=== PATIENT | female | born 1940 ===

== ENCOUNTER 2018-03-07 17:37 | Inpatient (IN) | payer MEDICARE ==
[2018-03-07 18:19] LABS: Bilirubin Negative (Negative); Blood, Urine Large (Negative); Clarity CLEAR (Clear); Glucose, Urine (Dipstick) Negative (Negative); Leukocyte Negative (Negative); Nitrite Negative (Negative); Protein, Urine (Dipstick) 100 mg/dL (Neg-Trace); Specific Gravity, Urine 1.028 (1.002-1.036); Urobilinogen 0.2 mg/dL (0.2-1.0)
[2018-03-07 18:23] LABS: Bacteria/HPF None Seen HPF (None Seen); Pathc Cast-AUWi Flag 0.72 (0-2.49); WBC/HPF 0-3 HPF (0-3)
[2018-03-07 18:34] LABS: #Lymphocytes 0.9 thou/uL (1.20-3.40); #Monocytes 0.6 thou/uL (0.11-0.59); #Neutrophils 13.4 thou/uL (1.40-6.50); %Eosinophils 0.3 % (0.0-10.0); %Lymphocytes 6.2 % (21.0-51.0); %Monocytes 4.1 % (0.0-10.0); %Neutrophils 89.4 % (42.0-75.0); Hemoglobin 15.4 g/dL (12.0-16.0); Mean Corpuscular HGB CONC 33.9 g/dL (32.0-36.0); Mean Corpuscular Hemoglobin 31.7 pg (27.0-31.0); Mean Corpuscular Volume 93.7 fL (78.0-98.0); Mean Platelet Volume 7.9 fL (7.4-10.4); Platelet Count 291 thou/uL (130-400); RBC Distribution Width 11.8 % (11.5-14.5); Red Blood Cell (RBC) Count 4.87 mill/uL (4.20-5.40)
[2018-03-07 18:38] LABS: Crystals/HPF 1+ STARCH HPF (Negative); Hyaline Casts/LPF 0-3 HYALINE CAST LPF (0-3 Hyaline); RBC/HPF 0-3 HPF (0-3); Renal Epithelial None Seen HPF (0-3); Transitional Epithelial NONE SEEN HPF (0-3)
--- NOTE | 2018-03-07 18:54 | RAD ---
PORTABLE CHEST 03/07/18 PROVIDED CLINICAL HISTORY: Altered mental status. FINDINGS: The cardiac and mediastinal silhouette is within normal limits. No focal consolidation, pleural fluid or pneumothorax apparent. IMPRESSION: No evidence for an acute cardiopulmonary process. POS: AMY
[2018-03-07 18:55] LABS: ALT (SGPT) 17 U/L (8-55); AST (SGOT) 35 U/L (5-34); Albumin 4.3 g/dL (3.4-4.8); Alkaline Phosphatase 72 U/L (40-150); Anion Gap 17 mmol/L (10-20); BUN (Urea Nitrogen) 11 mg/dL (9.8-20.1); Bilirubin, Total 0.5 mg/dL (0.2-1.2); CK (CPK) 667 U/L (29-168); Calc. Creatinine Clearance 0 mL/min (70-130); Calcium 9.7 mg/dL (7.8-10.44); Carbon Dioxide 20 mmol/L (23-31); Chloride 103 mmol/L (98-107); Estimated GFR-MDRD 63; Globulin 3.1 g/dL (2.4-3.5); Glucose 141 mg/dL (83-110); Potassium 4.2 mmol/L (3.5-5.1); Protein, Total 7.4 g/dL (6.0-8.3); Sodium 136 mmol/L (136-145)
[2018-03-07 19:23] LABS: CKMB 7.3 ng/mL (0-6.6)
[2018-03-07] MEDS ORDERED: Aspirin 300 MG Suppository ONE (19:28)
--- NOTE | 2018-03-07 19:42 | CT ---
CT BRAIN 03/07/18 PROVIDED CLINICAL HISTORY: Altered mental status. FINDINGS: Comparison is made with the examination dated 01/16/17. There is diminished attenuation and loss of varela-white differentiation involving the high right front al gyri near the vertex, compatible with recent infarction. There is no evidence for intracranial hem orrhage. Prominent chronic microvascular ischemic changes are seen. The ventricular system is nondila ki. There is no evidence for mass effect or midline shift. The extracranial soft tissues and osseous structures demonstrate no acute abnormality. IMPRESSION: Findings compatible with acute infarction in the distribution of the right anterior cerebral artery. No evidence for intracranial hemorrhage. POS: AMY
[2018-03-07] MEDS ORDERED: Ondansetron PF 4 MG/2 ML Vial IVP PRN (20:20)
[2018-03-07] MEDS ORDERED: Acetaminophen 325 MG TAB PO PRN (20:20)
--- NOTE | 2018-03-07 23:07 | HP ---
PRIMARY CARE PHYSICIAN: Abhi Morgan MD CODE STATUS: DNR. I have discussed the code status with power of energy attorney in advance directive, who is patient's daughter. TIME OF EVALUATION: 7:30 p.m. CHIEF COMPLAINT: The patient was found on the floor. HISTORY OF PRESENT ILLNESS: This is a 77-year-old female patient. The patient has a past medical history of dementia, looks like patient also had a history of hypertension, came to the hospital after the patient being found on the floor. EMS was called, the patient was found to have left-sided weakness, with deviation of the gaze in the head to the right side, last time the patient was seen normal was 24 hours ago. No clear triggers. No elevation factors of patient symptoms and symptoms are severe. It looks like the pain going on for 12 to 24 hours. REVIEW OF SYSTEMS: Unable to obtain any information. The patient does not answer any questions. PAST MEDICAL HISTORY: Unable to fully confirm, but one of the friends who is in the bedside said the patient has a history of hypertension. PAST SURGICAL HISTORY: Unable to obtain. PSYCHIATRIC HISTORY: The patient has some dementia, but was unable to do most of her activities of daily living before the stroke. ALLERGIES: NO KNOWN DRUG ALLERGIES. REPORTED MEDICATIONS: 1. Memantine. 2. Alprazolam. 3. Atorvastatin. 4. Donepezil. 5. Fluoxetine. 6. Meclizine. 7. Metoprolol. 8. Effexor. PHYSICAL EXAMINATION: VITAL SIGNS: On presentation, blood pressure 169/82 with heart rate 70, respiratory rate was 18, oxygen saturation was 95 on room air, temperature was 98.6. GENERAL APPEARANCE: The patient has right side deviation of the gaze of the head, disoriented, confused, unable to give any answers. HEENT: Eyes, gaze deviated to the right. Normal conjunctivae. Moist oral mucosa. Anicteric. No JVD. RESPIRATORY: Bilateral air entry. No rales. No wheezing. Symmetric expansion. CARDIOVASCULAR: Normal rate. Regular rhythm. No murmurs. No gallops. No edema. ABDOMEN: Soft. Normal bowel sounds. MUSCULOSKELETAL: Baseline range of motion and strength except for deviation and left sided weakness from the stroke. No tenderness. SKIN: Warm and intact. No pallor. No rash. No redness. EXTREMITIES: Peripheral pulses are present. Capillary refill seems to be intact. NEUROLOGIC: The patient has left sided weakness with deviation of the gaze in the head to the right side, unable to speak, aphasic, unable to fully explore. PSYCHIATRIC: Unable to explore. DIAGNOSTIC DATA: EKG was reviewed. The patient has sinus rhythm with marked sinus arrhythmia. No specific ST and T-wave abnormalities, ventricular rate 71 with QRS 78, QT corrected 445. EKG has been reviewed by myself. Chest x-ray was reviewed, the patient has no evidence of any acute cardiopulmonary process. The brain CT was reviewed, the patient had findings compatible with acute infarction in the distribution of right anterior cerebral artery. No evidence for intracranial hemorrhage. LABORATORY DATA: Labs were reviewed. The patient had white count of 15, RBC 4.8, hemoglobin 15.4, MCV 93.7, platelet count 291. Sodium 136, potassium 4.2, chloride 103, carbon dioxide 20, anion gap 17, BUN 11, creatinine 0.87, GFR 63, glucose 141, calcium 9.7, total bilirubin 0.5, AST 35, ALT 17, alk phos 72, creatine kinase , troponin 0.032. CK MB 7.3. Urine was done and was negative for any urinary infection. ASSESSMENT AND PLAN: The patient will be placed in the hospital with the following medical problems: 1. Acute ischemic stroke as seen on the CT angio in the territory of the right anterior cerebral artery, that likely is the etiology for the left side weakness. We will do stroke protocol, we will consult neurology. We will monitor patient for any complications. Keep n.p.o. The patient will need swallow evaluation due to risk of aspiration, permissive hypertension. 2. Uncontrolled hypertension. We will allow permissive hypertension due to acute ischemic stroke. 3. Leukocytosis. White count 15, likely to infection. We will continue to monitor the white count. No evidence of sepsis at this point. No further treatment. 4. Hyperglycemia. Glucose of 141, no reported diabetes as of now from family members, likely due to acute stress. We will monitor, no need for acute intervention. 5. Mildly elevated CK this is likely secondary to being lying on the floor. We will monitor. We will hydrate with correction. No further treatment at this point. 6. Mildly elevated troponin with 0.032. We will treat. We will trend troponins. This is likely non-STEMI type 2 secondary to stroke. 7. Deep venous thrombosis prophylaxis. RISK ASSESSMENT: The patient is high risk due to acute stroke. Job ID: [id number]
[2018-03-07] MEDS ORDERED: Sodium Chloride 0.9% 1,000 ML IV SCH (23:45)
[2018-03-08 01:16] LABS: Troponin I 0.033 ng/mL (< 0.028)
[2018-03-08 03:24] VITALS: BMI 18.5
[2018-03-08 05:34] LABS: #Eosinphils 0.1 thou/uL (0.0-0.7); #Monocytes 1.3 thou/uL (0.11-0.59); #Neutrophils 11.4 thou/uL (1.40-6.50); %Basophils 0.2 % (0.0-1.0); %Eosinophils 0.5 % (0.0-10.0); %Lymphocytes 13.7 % (21.0-51.0); %Monocytes 8.8 % (0.0-10.0); %Neutrophils 76.8 % (42.0-75.0); Hemoglobin 13.9 g/dL (12.0-16.0); Mean Corpuscular HGB CONC 33.4 g/dL (32.0-36.0); Mean Corpuscular Hemoglobin 30.4 pg (27.0-31.0); Mean Corpuscular Volume 90.9 fL (78.0-98.0); Mean Platelet Volume 8.1 fL (7.4-10.4); Platelet Count 287 thou/uL (130-400); RBC Distribution Width 11.8 % (11.5-14.5); Red Blood Cell (RBC) Count 4.58 mill/uL (4.20-5.40); White Blood Cell (WBC) Count 14.8 thou/uL (4.8-10.8)
[2018-03-08 05:52] LABS: Anion Gap 16 mmol/L (10-20); BUN (Urea Nitrogen) 18 mg/dL (9.8-20.1); Calc. Creatinine Clearance 40 mL/min (70-130); Calcium 9.6 mg/dL (7.8-10.44); Carbon Dioxide 22 mmol/L (23-31); Cardiac Risk 3.2 (Less than 4.5); Chloride 104 mmol/L (98-107); Cholesterol 194 mg/dl (< 200 Desired); Estimated GFR-MDRD 56; Glucose 106 mg/dL (83-110); HDL Cholesterol 61 mg/dL (>60 Neg Risk); LDL Cholesterol, Calculated 109 mg/dL; Potassium 3.9 mmol/L (3.5-5.1); Sodium 138 mmol/L (136-145); Triglycerides 122 mg/dL (Less than 150)
[2018-03-08] MEDS: Enoxaparin Sodium 40 MG/0.4 ML SYRINGE SC SCH (08:44)
[2018-03-08] MEDS: Aspirin 300 MG Suppository PR SCH (08:45)
--- NOTE | 2018-03-08 08:48 | ULT ---
CAROTID DOPPLER: Date: 03/08/18 PROVIDED CLINICAL HISTORY: CVA. FINDINGS: [place]ro scale and color Doppler sonography with spectral analysis was performed of the extracranial stone tid system bilaterally. Atherosclerotic plaque is seen in the region of both carotid bulbs. There is no evidence for a hemodynamically significant internal carotid artery stenosis by peak systolic veloc ity or ratio criteria. Antegrade flow is seen in the vertebral arteries. IMPRESSION: No sonographic evidence for hemodynamically significant internal carotid artery stenosis. POS: JAZMIN
[2018-03-08] MEDS ORDERED: Prevnar 13-Val Conj/PF 0.5 ML SYRINGE IM ONE (09:00)
--- NOTE | 2018-03-08 11:51 | MRI ---
MRI BRAIN: Date: 03/08/18 PROVIDED CLINICAL HISTORY: Altered mental status. FINDINGS: Comparison made with the CT examination performed 03/07/18. The ventricular system is normal in size and morphology. There is restricted diffusion in the distrib ution of the right anterior cerebral artery, compatible with recent infarction. There is no evidence for intracranial hemorrhage. No additional restricted diffusion is evident. Chronic microvascular isc hemic changes are seen involving the cerebral white matter. Appropriate flow-voids are seen within th e major intracranial vessels. The extracranial soft tissues and calvarial marrow demonstrate normal M R appearance. IMPRESSION: Restricted diffusion in the distribution of the right anterior cerebral artery compatible with recent infarction. POS: JAZMIN
--- NOTE | 2018-03-08 14:14 | PDOC.PN ---
- Subjective Encounter Start Date: 03/08/18 Encounter Start Time: 14:12 Subjective: pt asleep and would not wake up .family at bedside -: was awake earlier today but this is baseline per them - Objective Resuscitation Status - Order Detail: 03/07/18 20:20 Resuscitation Status Routine Resuscitation Status: DNAR: NO Resuscitation Discussed with: JOSEFA,Daughter over the phone MAR Reviewed: Yes Vital Signs & Weight: Vital Signs (12 hours) Temp Pulse Pulse Resp BP BP Pulse Ox 03/08/18 12:00 98.6 F 69 16 123/71 96 03/08/18 09:13 73 141/67 H 03/08/18 07:52 98.4 F 71 16 133/64 95 03/08/18 07:30 96 03/08/18 04:58 98.5 F 77 16 135/63 95 Weight Weight 114 lb 14.4 oz Result Diagrams: 03/08/18 05:08 03/08/18 05:08 Additional Labs: Accuchecks 03/07/18 17:44 POC Glucose 163 H Laboratory Tests 03/07/18 03/07/18 03/07/18 18:26 18:26 21:27 Creatine Kinase 667 H Troponin I 0.032 H 0.030 H Triglycerides Cholesterol LDL Cholesterol, Calc HDL Cholesterol 03/08/18 03/08/18 00:46 05:08 Creatine Kinase Troponin I 0.033 H Triglycerides 122 Cholesterol 194 LDL Cholesterol, Calc 109 HDL Cholesterol 61 Dx/Plan (1) Acute CVA (cerebrovascular accident) Code(s): I63.9 - CEREBRAL INFARCTION, UNSPECIFIED Status: Acute (2) Rhabdomyolysis Code(s): M62.82 - RHABDOMYOLYSIS Status: Acute Comment: Mild (3) Demand ischemia Code(s): I24.8 - OTHER FORMS OF ACUTE ISCHEMIC HEART DISEASE Status: Acute (4) Dementia Code(s): F03.90 - UNSPECIFIED DEMENTIA WITHOUT BEHAVIORAL DISTURBANCE Status: Chronic (5) HTN (hypertension) Code(s): I10 - ESSENTIAL (PRIMARY) HYPERTENSION Status: Chronic - Plan PT/OT, DVT proph w/SCDs cont ASA.add statin -: stroke team and eventual rehab -: Children will be there tomorrow -: ECHO pending. -: am labs * . Review of Systems - Review of Systems Other: can not be obtained due to somnolence - Medications/Allergies Allergies/Adverse Reactions: Allergies Allergy/AdvReac Type Severity Reaction Status Date / Time No Known Drug Allergies Allergy Verified 03/08/18 08:00 Medications: Current Medications Acetaminophen (Tylenol) 650 mg PO Q4H PRN PRN Reason: Headache/Fever/Mild Pain (1-3) Aspirin (Aspirin) 300 mg TX DAILY [facility] Last Admin: 03/08/18 08:45 Dose: 300 mg Atorvastatin Calcium (Lipitor) 40 mg PO HS [facility] Enoxaparin Sodium (Lovenox) 40 mg SC 0900 [facility] Last Admin: 03/08/18 08:44 Dose: 40 mg Ondansetron HCl (Zofran) 4 mg IVP Q6H PRN PRN Reason: Nausea/Vomiting Sodium Chloride (Flush - Normal Saline) 10 ml IVF PRN PRN PRN Reason: Saline Flush
[2018-03-08] MEDS: Atorvastatin Calcium 40 MG TAB PO SCH (21:21)
--- NOTE | 2018-03-09 00:45 | CON ---
DATE OF CONSULTATION: CHIEF COMPLAINT: Acute stroke. HISTORY OF PRESENT ILLNESS: Per chart, the patient is a 77-year-old lady who has history of dementia and hypertension, and she was found on the floor and she was found to have left-sided weakness. Her friend gave me medical history. She stated to the extent unknown to her. The patient lives in a independent facility, that is a custodial community. The patient is fairly independent and she has been diagnosed with dementia within the last 3 to 6 months and recently, she was at their home and was sleeping 14 to 19 hours a day. On , she was okay and on Saturday, when she did not return the phone call, her friend went to find her at the custodial community and she was found on the floor. She was brought to the ER. Her daughter lives far away and is coming to see her soon. PAST MEDICAL HISTORY: She has hypertension and she had history of breast cancer in the 80s or 90s. She did not have surgery, but has radiation therapy. She also had cataract surgery. SOCIAL HISTORY: Lives alone in the independent facility. HOME MEDICATIONS: Reviewed. She is on; 1. Memantine. 2. Alprazolam. 3. Atorvastatin. 4. Donepezil. 5. Fluoxetine. 6. Meclizine. 7. Metoprolol. 8. Effexor. Per her friend, she is on multiple medications for depression and they are trying to gather her medicines and bring them in. FAMILY HISTORY: Unknown. REVIEW OF SYSTEMS: Unable to obtain. LABORATORY WORKUP: White count 14.8, hemoglobin 13.9, hematocrit 41.7, and platelets 287. Sodium 138, potassium 3.9, chloride 104, bicarb 22, anion gap 16, BUN 18, creatinine is 0.96, and her glucose 106. Her CK-MB 7.3. Troponin have been elevated. Her CPK 667 likely from the fall. Lipid profile was within normal limits and her MRI of the brain was reviewed from today and the patient has CVA in the right anterior cerebral artery distribution consistent with recent infarct. No CT angio was available. She had a carotid Doppler study, which showed no sonographic evidence for any internal carotid artery stenosis. Echocardiogram is pending. PHYSICAL EXAMINATION: VITAL SIGNS: Blood pressure 141/67, pulse 73, temperature 98.4, and respiratory rate 16. GENERAL APPEARANCE: Thin built lady, who is well nourished. She is lying in bed. There is some responsiveness. She tries to follow commands, but no further response can be elicited. CHEST: She has mild wheezing. CARDIOVASCULAR: S1, S2 heard. No murmurs. ABDOMEN: Soft. NEUROLOGIC: She has some responsiveness. She has flaccidity of the left upper and lower extremities. She has left-sided neglect., left facial droop and right gaze preference. She does move slightly on the right side. No further motor testing could be done. Cerebellar sensory unable to examine. Deep tendon reflexes were absent. IMPRESSION: The patient is a 77-year-old lady who was found down in her facility and she has preexisting dementia. She was reasonably independent per her friend, but has been sleeping more recently. Her examination is limited. She has right gaze preference, has decreased tone on the left side with neglect on the left side and left facial droop. Clinical diagnosis is most consistent with acute infarct based on MRI, localization was right HI territory. TREATMENT PLAN AND RECOMMENDATIONS: Please start her on aspirin for stroke prophylaxis. Please complete her workup including echocardiogram. She will need long-term rehab placement. We will follow up again tomorrow. Job ID: [id number]
[2018-03-09] MEDS ORDERED: Dextrose 5%-Lactated Ringers 1,000 ML IV SCH (07:45)
[2018-03-09] MEDS: Dextrose 5 % And 0.9 % NaCl 1,000 ML IV SCH ×2 (07:57→21:35)
[2018-03-09] MEDS: Enoxaparin Sodium 40 MG/0.4 ML SYRINGE SC SCH (09:09)
[2018-03-09] MEDS: Aspirin 300 MG Suppository PR SCH (09:11)
--- NOTE | 2018-03-09 12:45 | PDOC.PN ---
- Subjective Encounter Start Date: 03/09/18 Encounter Start Time: 12:42 Subjective: does not respond t verbal or tactile stimulus -: no overnight events.remains NPO - Objective Resuscitation Status - Order Detail: 03/07/18 20:20 Resuscitation Status Routine Resuscitation Status: DNAR: NO Resuscitation Discussed with: JOSEFA,Daughter over the phone MAR Reviewed: Yes Vital Signs & Weight: Vital Signs (12 hours) Temp Pulse Pulse Pulse Resp BP BP 03/09/18 12:00 98.8 F 85 16 03/09/18 08:42 80 96 167/75 H 141/94 H 03/09/18 08:00 98.1 F 91 16 03/09/18 03:20 98.6 F 95 16 BP Pulse Ox 03/09/18 12:00 162/70 H 95 03/09/18 08:42 03/09/18 08:00 141/79 H 96 03/09/18 03:20 142/75 H 95 Weight Admit Weight 114 lb 14.4 oz Weight 114 lb 14.4 oz Result Diagrams: 03/08/18 05:08 03/08/18 05:08 Radiology Reviewed by me: Yes (ECHO-EF 55%.mild Diastolic dysFx) Phys Exam - Physical Examination Constitutional: NAD sleeping peacfully.when woken up,keeps eyes closed HEENT: PERRLA, moist MMs, sclera anicteric, oral pharynx no lesions Neck: no nodes, no JVD, supple, full ROM Respiratory: no wheezing, no rales, no rhonchi Cardiovascular: RRR, no significant murmur Gastrointestinal: soft, non-tender, no distention, positive bowel sounds Musculoskeletal: no edema, pulses present can not be completed as pt does not participate Dx/Plan (1) Acute CVA (cerebrovascular accident) Code(s): I63.9 - CEREBRAL INFARCTION, UNSPECIFIED Status: Acute Comment: R HI artery distribution (2) Rhabdomyolysis Code(s): M62.82 - RHABDOMYOLYSIS Status: Acute Comment: Mild (3) Demand ischemia Code(s): I24.8 - OTHER FORMS OF ACUTE ISCHEMIC HEART DISEASE Status: Acute (4) Dementia Code(s): F03.90 - UNSPECIFIED DEMENTIA WITHOUT BEHAVIORAL DISTURBANCE Status: Chronic (5) HTN (hypertension) Code(s): I10 - ESSENTIAL (PRIMARY) HYPERTENSION Status: Chronic - Plan PT/OT, out of bed/ambulate, DVT proph w/SCDs cont ASA,statin.rehab when arranged -: cont OT/PT.STRUCTURAL WORKER followimng -: cont IVf untill cleared for PO intake -: Hd stable. * . Review of Systems - Review of Systems Other: can not be obtained due to dementia /somnolence - Medications/Allergies Allergies/Adverse Reactions: Allergies Allergy/AdvReac Type Severity Reaction Status Date / Time No Known Drug Allergies Allergy Verified 03/08/18 08:00 Medications: Current Medications Acetaminophen (Tylenol) 650 mg PO Q4H PRN PRN Reason: Headache/Fever/Mild Pain (1-3) Aspirin (Aspirin) 300 mg IN DAILY [facility] Last Admin: 03/09/18 09:11 Dose: 300 mg Atorvastatin Calcium (Lipitor) 40 mg PO HS [facility] Last Admin: 03/08/18 21:21 Dose: Not Given Enoxaparin Sodium (Lovenox) 40 mg SC 0900 [facility] Last Admin: 03/09/18 09:09 Dose: 40 mg Dextrose/Sodium Chloride (D5 0.9% Ns) 1,000 mls @ 75 mls/hr IV .[id number] [facility] Last Admin: 03/09/18 07:57 Dose: 1,000 mls Ondansetron HCl (Zofran) 4 mg IVP Q6H PRN PRN Reason: Nausea/Vomiting Sodium Chloride (Flush - Normal Saline) 10 ml IVF PRN PRN PRN Reason: Saline Flush
--- NOTE | 2018-03-09 14:54 | PRG ---
DATE OF SERVICE: 03/09/2018 INTERVAL HISTORY: The patient has not had any further improvement clinically since yesterday. CURRENT WORKUP: She has finished her MRI scan of the brain and it shows restricted diffusion in the distribution of right anterior cerebral artery, compatible with a recent infarct. OBJECTIVE: VITAL SIGNS: Blood pressure was 141/94, temperature 98.1, and pulse is 91. NEUROLOGIC: She is staring blankly, does not talk much, and does not respond much to any stimuli. 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 IMPRESSION: The patient with underlying likely dementia, but was relatively functional until the ischemic event. She has other health issues as well including rhabdomyolysis and her current workup shows acute stroke in the right HI territory, which causes left-sided weakness. Her cardiac workup does not show any presence of thrombus, and clinically, she is not very responsive. RECOMMENDATIONS: At this time, I would like to go ahead and request an EEG for tomorrow, and we will request neurologist to follow up on this particular patient. Call Neurology if you have any further questions. For now, continue aspirin. Job ID: [id number] MTDD
[2018-03-09] MEDS ORDERED: Acetaminophen 650 MG Suppository PR PRN (17:37)
[2018-03-09] MEDS: Atorvastatin Calcium 40 MG TAB PO SCH (20:53)
[2018-03-10] MEDS: hydrALAZINE 20 MG/ML VIAL SLOW IVP PRN (08:19)
[2018-03-10] MEDS: Enoxaparin Sodium 40 MG/0.4 ML SYRINGE SC SCH (08:19)
[2018-03-10] MEDS: Aspirin 300 MG Suppository PR SCH (08:20)
[2018-03-10] MEDS: Dextrose 5 % And 0.9 % NaCl 1,000 ML IV SCH ×2 (10:36→23:57)
--- NOTE | 2018-03-10 10:58 | PDOC.PN ---
- Subjective Encounter Start Date: 03/10/18 Encounter Start Time: 10:57 Subjective: more awake today.care discussed w cayden and TRINITY at bedside - Objective Resuscitation Status - Order Detail: 03/07/18 20:20 Resuscitation Status Routine Resuscitation Status: DNAR: NO Resuscitation Discussed with: JOSEFA,Daughter over the phone MAR Reviewed: Yes Vital Signs & Weight: Vital Signs (12 hours) Temp Pulse Resp BP BP Pulse Ox 03/10/18 08:19 68 181/81 H 95 03/10/18 07:31 99 F 68 17 181/81 H 95 03/10/18 04:35 98.3 F 63 18 144/69 H 94 L 03/09/18 23:33 98.3 F 74 20 173/77 H 95 Weight Admit Weight 114 lb 14.4 oz Weight 114 lb 14.4 oz I&O: 03/09/18 03/10/18 03/11/18 06:59 06:59 06:59 Intake Total 1971 Balance 1971 Result Diagrams: 03/08/18 05:08 03/08/18 05:08 Additional Labs: Laboratory Tests 03/07/18 03/07/18 03/08/18 18:26 21:27 00:46 Troponin I 0.032 H 0.030 H 0.033 H Triglycerides Cholesterol LDL Cholesterol, Calc HDL Cholesterol 03/08/18 05:08 Troponin I Triglycerides 122 Cholesterol 194 LDL Cholesterol, Calc 109 HDL Cholesterol 61 Phys Exam - Physical Examination Constitutional: NAD opens eyes for longer period today but sales snot follow commands HEENT: PERRLA, moist MMs, sclera anicteric Neck: no JVD Respiratory: no wheezing, no rales, no rhonchi Cardiovascular: RRR, no significant murmur Gastrointestinal: soft, non-tender, no distention, positive bowel sounds Musculoskeletal: no edema, pulses present Left hemiparesis Psychiatric: normal affect Dx/Plan (1) Acute CVA (cerebrovascular accident) Code(s): I63.9 - CEREBRAL INFARCTION, UNSPECIFIED Status: Acute Comment: R HI artery distribution (2) Rhabdomyolysis Code(s): M62.82 - RHABDOMYOLYSIS Status: Acute Comment: Mild (3) Demand ischemia Code(s): I24.8 - OTHER FORMS OF ACUTE ISCHEMIC HEART DISEASE Status: Acute (4) Dementia Code(s): F03.90 - UNSPECIFIED DEMENTIA WITHOUT BEHAVIORAL DISTURBANCE Status: Chronic (5) HTN (hypertension) Code(s): I10 - ESSENTIAL (PRIMARY) HYPERTENSION Status: Chronic - Plan plan discussed w/ family, PT/OT, out of bed/ambulate, DVT proph w/SCDs BP high.add prn meds without tight control in light of CVA -: prognosis poor. discussed w family -: will start Dobhoff feeds if fails swollow test again w SPRAYER INSECTICIDE. -: may need PEG & NH placement .family to decide. -: cont OR ASA.add statin when cleared for PO intake.cont IVF.stable * . Review of Systems - Review of Systems Other: can not be completed due to dementia and encephalopathy likley from stroke - Medications/Allergies Allergies/Adverse Reactions: Allergies Allergy/AdvReac Type Severity Reaction Status Date / Time No Known Drug Allergies Allergy Verified 03/08/18 08:00 Medications: Current Medications Acetaminophen (Tylenol) 650 mg PO Q4H PRN PRN Reason: Headache/Fever/Mild Pain (1-3) Acetaminophen (Tylenol) 650 mg OR Q6H PRN PRN Reason: Headache/Fever or Mild Pain Last Admin: 03/09/18 17:55 Dose: 650 mg Aspirin (Aspirin) 300 mg OR DAILY [facility] Last Admin: 03/10/18 08:20 Dose: 300 mg Atorvastatin Calcium (Lipitor) 40 mg PO HS [facility] Last Admin: 03/09/18 20:53 Dose: Not Given Enoxaparin Sodium (Lovenox) 40 mg SC 0900 [facility] Last Admin: 03/10/18 08:19 Dose: 40 mg Hydralazine HCl (Apresoline) 10 mg SLOW IVP Q4H PRN PRN Reason: SBP>170 Last Admin: 03/10/18 08:19 Dose: 10 mg Dextrose/Sodium Chloride (D5 0.9% Ns) 1,000 mls @ 75 mls/hr IV .[id number] [facility] Last Admin: 03/10/18 10:36 Dose: 1,000 mls Ondansetron HCl (Zofran) 4 mg IVP Q6H PRN PRN Reason: Nausea/Vomiting Sodium Chloride (Flush - Normal Saline) 10 ml IVF PRN PRN PRN Reason: Saline Flush
[2018-03-10] MEDS ORDERED: Enalaprilat Dihydrate 1.25 MG/ML VIAL SLOW IVP SCH (12:00)
[2018-03-10] MEDS: Sodium Chloride 0.65% Nasal 44 ML BOT EA NARE PRN ×2 (15:40→22:03)
[2018-03-10] MEDS ORDERED: ALPRAZolam 0.25 MG TAB PO PRN (17:12)
[2018-03-10] MEDS ORDERED: Atorvastatin Calcium 20 MG TAB PO SCH (21:00)
[2018-03-10] MEDS: FLUoxetine HCl 20 MG CAP PO SCH (21:54)
[2018-03-10] MEDS: Venlafaxine XR 37.5 MG CAP PO SCH (21:54)
[2018-03-10] MEDS: Atorvastatin Calcium 40 MG TAB PO SCH (21:54)
[2018-03-11] MEDS: hydrALAZINE 20 MG/ML VIAL SLOW IVP PRN (07:55)
[2018-03-11] MEDS: FLUoxetine HCl 20 MG CAP PO SCH ×2 (08:18→10:52)
[2018-03-11] MEDS: Donepezil HCl 5 MG TAB PO SCH (08:18)
[2018-03-11] MEDS: Aspirin 325 MG TAB PO SCH (08:18)
[2018-03-11] MEDS: Venlafaxine XR 37.5 MG CAP PO SCH ×2 (08:19→10:53)
[2018-03-11] MEDS: Enoxaparin Sodium 40 MG/0.4 ML SYRINGE SC SCH (08:19)
[2018-03-11] MEDS ORDERED: Lisinopril 5 MG TAB PO SCH (09:00)
[2018-03-11] MEDS ORDERED: Carvedilol 6.25 MG TAB PO SCH (10:45)
[2018-03-11] MEDS: Sodium Chloride 0.65% Nasal 44 ML BOT EA NARE PRN (11:27)
--- NOTE | 2018-03-11 15:02 | PDOC.PN ---
- Subjective Encounter Start Date: 03/11/18 Encounter Start Time: 14:59 Subjective: awake and able to eat the pureed foods & crushed pills -: few beats of NSVt per RN - Objective Resuscitation Status - Order Detail: 03/07/18 20:20 Resuscitation Status Routine Resuscitation Status: DNAR: NO Resuscitation Discussed with: Mirna RIVERO over the phone MAR Reviewed: Yes Vital Signs & Weight: Vital Signs (12 hours) Temp Pulse Pulse Resp BP BP BP 03/11/18 11:51 98.5 F 69 16 126/59 L 03/11/18 11:26 126/60 03/11/18 11:20 68 126/60 03/11/18 10:52 76 03/11/18 09:52 76 131/63 03/11/18 07:55 72 190/79 H 03/11/18 07:45 98.4 F 72 16 190/79 H 03/11/18 04:00 98.7 F 71 18 167/77 H Pulse Ox 03/11/18 11:51 95 03/11/18 11:26 03/11/18 11:20 03/11/18 10:52 03/11/18 09:52 03/11/18 07:55 98 03/11/18 07:45 98 03/11/18 04:00 94 L Weight Admit Weight 114 lb 14.4 oz Weight 114 lb 14.4 oz I&O: 03/10/18 03/11/18 03/12/18 06:59 06:59 06:59 Intake Total 3638 333 Output Total 300 Balance 3338 333 Result Diagrams: 03/08/18 05:08 03/08/18 05:08 Phys Exam - Physical Examination Constitutional: NAD awake and follows simple commands HEENT: PERRLA, moist MMs, sclera anicteric, oral pharynx no lesions Neck: no nodes, no JVD, supple, full ROM Respiratory: no wheezing, no rales, no rhonchi, clear to auscultation bilateral Cardiovascular: RRR, no significant murmur Gastrointestinal: soft, non-tender, no distention, positive bowel sounds Musculoskeletal: no edema, pulses present left hemiparesis Psychiatric: normal affect Dx/Plan (1) Acute CVA (cerebrovascular accident) Code(s): I63.9 - CEREBRAL INFARCTION, UNSPECIFIED Status: Acute Comment: R HI artery distribution (2) Rhabdomyolysis Code(s): M62.82 - RHABDOMYOLYSIS Status: Acute Comment: Mild (3) Demand ischemia Code(s): I24.8 - OTHER FORMS OF ACUTE ISCHEMIC HEART DISEASE Status: Acute (4) Dementia Code(s): F03.90 - UNSPECIFIED DEMENTIA WITHOUT BEHAVIORAL DISTURBANCE Status: Chronic (5) HTN (hypertension) Code(s): I10 - ESSENTIAL (PRIMARY) HYPERTENSION Status: Chronic - Plan PT/OT, DVT proph w/SCDs cont ASA,statin.HD stable.EEG pending -: cont diet w precautions -: awaiting rehab placement -: care discussed w daughter in detail -: add Coreg for tachycardia & High BP.monitor * . Review of Systems - Review of Systems Other: can not be reliable obtained due to dementia.says she feels Ok - Medications/Allergies Allergies/Adverse Reactions: Allergies Allergy/AdvReac Type Severity Reaction Status Date / Time No Known Drug Allergies Allergy Verified 03/08/18 08:00 Medications: Current Medications Acetaminophen (Tylenol) 650 mg PO Q4H PRN PRN Reason: Headache/Fever/Mild Pain (1-3) Last Admin: 03/10/18 16:57 Dose: 650 mg Acetaminophen (Tylenol) 650 mg [place] Q6H PRN PRN Reason: Headache/Fever or Mild Pain Last Admin: 03/09/18 17:55 Dose: 650 mg Alprazolam (Xanax) 0.125 mg PO TID PRN PRN Reason: Anxiety Aspirin (Aspirin) 325 mg PO DAILY [facility] Last Admin: 03/11/18 08:18 Dose: 325 mg Atorvastatin Calcium (Lipitor) 40 mg PO HS [facility] Last Admin: 03/10/18 21:54 Dose: 40 mg Carvedilol (Coreg) 12.5 mg PO BID [facility] Donepezil HCl (Aricept) 5 mg PO DAILY [facility] Last Admin: 03/11/18 08:18 Dose: 5 mg Enoxaparin Sodium (Lovenox) 40 mg SC 0900 [facility] Last Admin: 03/11/18 08:19 Dose: 40 mg Hydralazine HCl (Apresoline) 10 mg SLOW IVP Q4H PRN PRN Reason: SBP>170 Last Admin: 03/11/18 07:55 Dose: 10 mg Memantine (Namenda) 10 mg PO BID [facility] Last Admin: 03/11/18 08:18 Dose: 10 mg Ondansetron HCl (Zofran) 4 mg IVP Q6H PRN PRN Reason: Nausea/Vomiting Sodium Chloride (Flush - Normal Saline) 10 ml IVF PRN PRN PRN Reason: Saline Flush Sodium Chloride ([place] [facility] [place] 0.65%) 0 ml EA NARE TIDPRN PRN PRN Reason: Nasal Dryness Last Admin: 03/11/18 11:27 Dose: 1 spray
[2018-03-11] MEDS: Atorvastatin Calcium 40 MG TAB PO SCH (21:28)
[2018-03-11] MEDS: Carvedilol 6.25 MG TAB PO SCH (21:28)
[2018-03-12] MEDS: Aspirin 325 MG TAB PO SCH (09:13)
[2018-03-12] MEDS: Carvedilol 6.25 MG TAB PO SCH ×2 (09:14→22:26)
[2018-03-12] MEDS: Donepezil HCl 5 MG TAB PO SCH (09:15)
[2018-03-12] MEDS: Enoxaparin Sodium 40 MG/0.4 ML SYRINGE SC SCH (09:15)
--- NOTE | 2018-03-12 13:47 | CT ---
CT BRAIN WITHOUT CONTRAST: HISTORY: CVA. Change in mental status. COMPARISON: 03/07/2018 FINDINGS: Interval evolution of the acute right HI infarction is seen, without hemorrhagic transformation. No new areas of infarct, midline shift, or abnormal extraaxial fluid collections are seen. The ventric ular size is appropriate, and the basilar cisterns are patent. Changes of chronic small vessel ische jus disease are again seen. The bony calvarium is intact. IMPRESSION: Evolving acute right anterior cerebral artery infarction without hemorrhagic transformation since . POS: [facility]
--- NOTE | 2018-03-12 14:53 | PDOC.PN ---
- Subjective Encounter Start Date: 03/12/18 Encounter Start Time: 14:51 Subjective: more sleepy today.care discussed w daughter at bedside -: discussed w [employer] -: failed swollow at bedside - Objective Resuscitation Status - Order Detail: 03/07/18 20:20 Resuscitation Status Routine Resuscitation Status: DNAR: NO Resuscitation Discussed with: JOSEFADaughter over the phone MAR Reviewed: Yes Vital Signs & Weight: Vital Signs (12 hours) Temp Pulse Resp BP BP Pulse Ox 03/12/18 11:39 99.5 F 67 20 115/55 L 94 L 03/12/18 09:14 141/72 H 03/12/18 08:59 96 03/12/18 08:00 96.6 F L 62 16 141/72 H 96 03/12/18 04:00 99.2 F 65 18 151/67 H 94 L Weight Admit Weight 114 lb 14.4 oz Weight 114 lb 14.4 oz I&O: 03/11/18 03/12/18 03/13/18 06:59 06:59 06:59 Intake Total 3638 933 250 Output Total 300 380 Balance 3338 553 250 Result Diagrams: 03/08/18 05:08 03/08/18 05:08 Phys Exam - Physical Examination Constitutional: NAD no response to verbal stimulus HEENT: moist MMs Neck: no nodes, no JVD, supple, full ROM Respiratory: no wheezing, no rales, no rhonchi, clear to auscultation bilateral Cardiovascular: RRR, no significant murmur Gastrointestinal: soft, non-tender, no distention, positive bowel sounds Musculoskeletal: no edema, pulses present lies immobile in bed Dx/Plan (1) Acute CVA (cerebrovascular accident) Code(s): I63.9 - CEREBRAL INFARCTION, UNSPECIFIED Status: Acute Comment: R HI artery distribution (2) Rhabdomyolysis Code(s): M62.82 - RHABDOMYOLYSIS Status: Acute Comment: Mild (3) Demand ischemia Code(s): I24.8 - OTHER FORMS OF ACUTE ISCHEMIC HEART DISEASE Status: Acute (4) Dementia Code(s): F03.90 - UNSPECIFIED DEMENTIA WITHOUT BEHAVIORAL DISTURBANCE Status: Chronic (5) HTN (hypertension) Code(s): I10 - ESSENTIAL (PRIMARY) HYPERTENSION Status: Chronic - Plan plan discussed w/ family, PT/OT, speech therapy, DVT proph w/SCDs repeat CT brain does not show any extension or herniation or hemorrhage -: Daughter would like to continue pleasure feeds w known risk of aspiration -: PCT to follow. -: placement as per her progress in next few days. SNIF than NH eventually -: hemodynamically stable.started on coreg for better BP manangement * . Review of Systems - Review of Systems Other: unobtainable as she is not responding to verbal or gentle tactile stimulus today - Medications/Allergies Allergies/Adverse Reactions: Allergies Allergy/AdvReac Type Severity Reaction Status Date / Time No Known Drug Allergies Allergy Verified 03/08/18 08:00 Medications: Current Medications Acetaminophen (Tylenol) 650 mg PO Q4H PRN PRN Reason: Headache/Fever/Mild Pain (1-3) Last Admin: 03/10/18 16:57 Dose: 650 mg Acetaminophen (Tylenol) 650 mg [place] Q6H PRN PRN Reason: Headache/Fever or Mild Pain Last Admin: 03/09/18 17:55 Dose: 650 mg Alprazolam (Xanax) 0.125 mg PO TID PRN PRN Reason: Anxiety Aspirin (Aspirin) 325 mg PO DAILY [facility] Last Admin: 03/12/18 09:13 Dose: 325 mg Atorvastatin Calcium (Lipitor) 40 mg PO HS [facility] Last Admin: 03/11/18 21:28 Dose: 40 mg Carvedilol (Coreg) 12.5 mg PO BID [facility] Last Admin: 03/12/18 09:14 Dose: 12.5 mg Donepezil HCl (Aricept) 5 mg PO DAILY [facility] Last Admin: 03/12/18 09:15 Dose: 5 mg Enoxaparin Sodium (Lovenox) 40 mg SC 0900 [facility] Last Admin: 03/12/18 09:15 Dose: 40 mg Hydralazine HCl (Apresoline) 10 mg SLOW IVP Q4H PRN PRN Reason: SBP>170 Last Admin: 03/11/18 07:55 Dose: 10 mg Memantine (Namenda) 10 mg PO BID [facility] Last Admin: 03/12/18 09:15 Dose: 10 mg Ondansetron HCl (Zofran) 4 mg IVP Q6H PRN PRN Reason: Nausea/Vomiting Sodium Chloride (Flush - Normal Saline) 10 ml IVF PRN PRN PRN Reason: Saline Flush Sodium Chloride ([place] [facility] [place] 0.65%) 0 ml EA NARE TIDPRN PRN PRN Reason: Nasal Dryness Last Admin: 03/11/18 11:27 Dose: 1 spray
--- NOTE | 2018-03-12 15:30 | RAD ---
MODIFIED BARIUM SWALLOW IN THE PRESENCE OF A SPEECH THERAPIST: Date: 03/12/18 HISTORY: Dysphagia, unspecified; feeding difficulties, CVA. FINDINGS/IMPRESSION: No laryngeal penetration, aspiration, or persistent pooling of contrast in the vallecula/piriform sin uses seen. Please see recommendations of the speech therapist for further management. Fluoroscopy time was 2.1 minutes and radiation dose was 1.068 mGy*cm^2. POS: [facility]
[2018-03-12] MEDS: Atorvastatin Calcium 40 MG TAB PO SCH (22:26)
[2018-03-13] MEDS: Carvedilol 6.25 MG TAB PO SCH (10:06)
[2018-03-13] MEDS: Enoxaparin Sodium 40 MG/0.4 ML SYRINGE SC SCH (10:09)
[2018-03-13] MEDS: Donepezil HCl 5 MG TAB PO SCH (10:09)
[2018-03-13] MEDS: Aspirin 325 MG TAB PO SCH (10:09)
--- NOTE | 2018-03-13 11:09 | PQF ---
JORDY EASTON RICHA MD [id number] [address] [place] [address] [id number] CLINICAL DOCUMENTATION IMPROVEMENT CLARIFICATION FORM: ICD-10 Updated PLEASE DO AN ADDENDUM TO THE PROGRESS NOTE WITH ANY DOCUMENTATION UPDATES OR ADDITIONS AND CARRY THROUGH TO DC SUMMARY. THANK YOU. DATE: 03/13 ATTN: DR. AIDEE JOHNSON Please exercise your independent, professional judgment in responding to the clarification form. Clinical indicators are provided on the bottom of this form for your review. Please check appropriate box(s): Encephalopathy: Type: [X ] Acute [ ] Subacute [ ] Chronic Etiology: [ ] Metabolic D/T Rhabdomyolysis [ X] D/T CVA [ ] Other (please specify) [ ] Other diagnosis [ ] Unable to determine In addition, please specify: Present on Admission (POA): [ X ] Yes [ ] No [ ] Unable to determine For continuity of documentation, please document condition throughout progress notes and discharge summary. Thank You. CLINICAL INDICATORS - SIGNS / SYMPTOMS / LABS ED DOCUMENTATION 03/07: [facility]ILY [facility] PT BASELINE IS A/O X4 ED PHYSICIAN DIAGNOSIS: CVA W/AMS H&P 03/07 (PA): PT HAS SOME DEMENTIA PN 03/08 (ALEX): DEMENTIA - BASELINE PER FAMILY PN 03/10 (ALEX): REVIEW OF SYSTEMS CANNOT BE COMPLETED D/T DEMENTIA & ENCEPHALOPATHY LIKELY FROM STROKE RISK FACTORS: ACUTE R HI CVA RHABDOMYOLYSIS DEMENTIA TREATMENTS: NEUROLOGY CONSULT THANK YOU! Shara (This form is maintained as a part of the permanent medical record) 2015 [employer]. All Rights Reserved Shara Hooks RN, BSN [email or web address] Office: [phone] [facility]
--- NOTE | 2018-03-13 11:19 | PQF ---
JORDY EASTON RICHA MD [id number] [address] [place] [address] [id number] CLINICAL DOCUMENTATION IMPROVEMENT CLARIFICATION FORM: ICD-10 Updated PLEASE DO AN ADDENDUM TO THE PROGRESS NOTE WITH ANY DOCUMENTATION UPDATES OR ADDITIONS AND CARRY THROUGH TO DC SUMMARY. THANK YOU. DATE: 03/13 ATTN: DR. AIDEE JOHNSON Please exercise your independent, professional judgment in responding to the clarification form. Clinical indicators are provided on the bottom of this form for your review. Please check appropriate box(s): AMI TYPE: [ ] NSTEMI [ ] Type II [place] [ X ] Demand Ischemia [ ] Other diagnosis [ ] Unable to determine In addition, please specify: Present on Admission (POA): [X ] Yes [ ] No [ ] Unable to determine CLINICAL INDICATORS - SIGNS / SYMPTOMS / LABS TROPONIN I: 0.032, 0.030, 0.033 (03/07) H&P 03/07 (PA): ASSESSMENT: 6) MILDLY ELEVATED TROPONIN WITH 0.032; ...THIS IS LIKELY NSTEMI TYPE 2 SECONDARY TO STROKE PN 03/08 - (ALEX): DX/PLAN: DEMAND ISCHEMIA RISKS: ACUTE CVA ELEVATED TROPONIN TREATMENTS: SERIAL TROPONIN ECHO THANK YOU! Shara (This form is maintained as a part of the permanent medical record) 2014 [employer]. All Rights Reserved Shara Hooks RN, BSN [email or web address] Office: [phone] [facility]
[2018-03-13 12:41] VITALS: BP 126/62; TEMP 98.7
--- NOTE | 2018-03-13 16:51 | DIS ---
DATE OF ADMISSION: 03/07/2018 DATE OF DISCHARGE: 03/13/2018 DISCHARGE DISPOSITION: [facility] with possible long-term placement there afterwards. DISCHARGE DIAGNOSES: 1. Acute cerebrovascular accident, right anterior cerebral artery distribution. 2. Demand ischemia. 3. Metabolic encephalopathy due to #1. 4. Chronic advanced dementia. 5. Hypertension. 6. Mild rhabdomyolysis. DISCHARGE MEDICATIONS: 1. Aspirin 325 mg daily. 2. Lipitor 40 mg daily. 3. Carvedilol 12.5 mg p.o. b.i.d. 4. Xanax t.i.d. p.r.n. 0.125 mg. 5. Namenda 10 mg p.o. b.i.d. 6. Aricept 5 mg daily. 7. Tylenol p.r.n. IN-HOUSE CONSULTATION: Neurology, Dr. Vázquez. PROCEDURES DONE IN THE HOSPITAL: 1. CT scan of the brain upon presentation, which showed compatible with new findings of acute infarction in the distribution of the right HI. No hemorrhage. 2. Carotid Doppler ultrasound which was negative for any hemodynamically significant stenosis. 3. Echocardiogram which showed EF of 60% to 65%, mild diastolic dysfunction. 4. MRI of the brain, which was confirmatory for right HI infarction. 5. Modified barium swallow, which did not show any signs of penetration. 6. Repeat CT scan of the brain because of change in neurological status, which was stable. PRIMARY CARE PHYSICIAN: Dr. Abhi Morgan. HISTORY OF PRESENTING ILLNESS: Ms. Tomlinson is a very pleasant 77-year-old female with past medical history of severe advanced dementia, who was still living in her independent living apartment at [place], presented to the emergency room with complaints of being found on the floor with left-sided weakness. She was found to have a stroke on right HI distribution in the emergency room. She was admitted to stroke floor for further evaluation and care. She had mild elevation of creatine kinase and troponin. Troponin was 0.032 with a CK-MB of 7.3. Please see admission history and physical for further details. Stroke team and Neurology were consulted. She was otherwise hemodynamically stable except for the blood pressure being 169/82. HOSPITAL COURSE: MRI, echocardiogram, carotid Doppler ultrasound were done as part of the stroke protocol. MRI confirmed the findings as above. Echo did not show any specific thrombus in the chambers. She was started and continued on aspirin and statin. Her antidepressants were stopped as per the request of the family. She was started on her dementia medications as above. She had waxing and waning symptoms and alertness while in the hospital likely due to underlying dementia as well as metabolic encephalopathy from the CVA. By the end of her stay in the hospital, she was back to her baseline, was able to feed herself and was talking a little bit more. She does have episodes of somnolence and lethargy, which seems to be baseline for her. She was seen and examined prior to discharge and is stable and has been accepted to rehab and will be discharged. PHYSICAL EXAMINATION: VITAL SIGNS: This morning vital signs; temperature 98.7, pulse of 63, respirations 16, saturating 95% on room air, blood pressure 126/62. GENERAL: No acute distress. Awake, alert, oriented to self. HEART: Rate, rhythm is regular. No murmurs. CHEST: Clear to auscultation bilaterally. The patient did have few episodes of paroxysmal atrial tachycardia while in the hospital, so she was started on carvedilol with good control. No further workup except for the echo done is recommended at this time because of advanced dementia. DISCHARGE PLAN: Discharge plan was discussed with her daughter in detail multiple times and they have emptied out her apartment and the plan is to find a long-term facility for her stay as the patient is clearly unable to take care of herself. Diet plan; as per the speech therapist involves modified diet with risk of aspiration. I have discussed this in detail with her daughter who verbalizes understanding. At this time, they did not want any PEG tube feeding. CODE STATUS: Do not resuscitate. TIME SPENT: Total time spent in the discharge 33 minutes. Job ID: [id number]
--- NOTE | 2018-03-14 09:37 | EEG ---
Referring Physician: Robson THAO EEG # [id number] TEST TYPE: ROUTINE PORTABLE INPATIENT REPORT: AN EEG USING THE INTERNATIONAL TEN-TWENTY SYSTEM OF ELECTRODE PLACEMENT WAS PERFORMED. The waking background is a 8-9 hertz Alpha frequency. The patient became drowsy , but no sleep was seen. Photic stimulation was unremarkable. No epileptiform features were noted. IMPRESSION: THIS IS A NORMAL AWAKE AND DROWSY EEG. Medical Records Coordinator: PARMJIT Shearing Shed Hand: [email or web address]
== END 2018-03-13 11:43 | DRG 64 ==
LOC: ERS 17:37 → ERHOLD 19:26 → 2SE 23:30
PROVIDERS: ADMIT Hospitalist; ATTEND Hospitalist
DX: I63.521 Cerebral infarction due to unspecified occlusion or stenosis of right anterior cerebral artery (principal); G93.41 Metabolic encephalopathy; G81.94 Hemiplegia, unspecified affecting left nondominant side; M62.82 Rhabdomyolysis; I24.8 Other forms of acute ischemic heart disease; I47.1 Supraventricular tachycardia; R29.733 NIHSS score 33; F03.90 Unspecified dementia, unspecified severity, without behavioral disturbance, psychotic disturbance, mood disturbance, and anxiety; I10 Essential (primary) hypertension; R13.10 Dysphagia, unspecified; Z66 Do not resuscitate; R73.9 Hyperglycemia, unspecified; Z79.899 Other long term (current) drug therapy
CPT/HCPCS: 36415; 36416; 51701; 70450; 70551; 71045; 74230; 80048; 80053; 80061; 81003; 81015; 82550; 82553; 83735; 84484; 85025; 90471; 90662; 90670; 93005; 93306; 93880; 94760; 95816; 95819; A4353; G0008; G0009; J0360; J1650